=== PATIENT | male | born 1980 | race Caucasian/White ===

== ENCOUNTER 2019-01-22 12:50 | Emergency (ER) | payer SELFPAY ==
[~2019-01-22 12:50] MED LIST: LORazepam 2 MG/ML VIAL ONE
--- NOTE | 2019-01-22 13:23 | EKG ---
Test Date: 2019-01-22 Test Time: 13:10:00 [employer]ometrics Instructor: PORFIRIO MEASUREMENT RESULTS: Intervals: Rate: 102 AK: 184 QRSD: 92 QT: 346 QTc: 450 Winside: P: 66 AK: 184 QRS: 82 T: 59 INTERPRETIVE STATEMENTS: Sinus tachycardia Otherwise normal ECG No previous ECG available for comparison Electronically Signed On 01-22-19 13:22:45 [employer] PROGRAM COORDINATOR by Juan José Cheema
[2019-01-22 13:33] LABS: Absolute Lymphocytes (CBC) 1.7 K/uL (0.7-4.9); Basophils % 1.2 % (0-1.3); Hematocrit 43.9 % (39.6-49.0); MPV 8.9 fL (7.6-11.3); RBC Red Blood Cell Count 5.11 M/uL (4.33-5.43)
[2019-01-22] MEDS ORDERED: LORazepam 2 MG/ML VIAL ONE (13:36)
[2019-01-22 13:42] LABS: Protime INR 0.94
[2019-01-22 13:45] LABS: Barbiturates NEGATIVE (NEGATIVE); Benzodiazepines POSITIVE (NEGATIVE); Cocaine POSITIVE (NEGATIVE); METHAMPHETAM POSITIVE (NEGATIVE); Methadone NEGATIVE (NEGATIVE); Opiates NEGATIVE (NEGATIVE); Phencyclidine NEGATIVE (NEGATIVE); THC Cannibis POSITIVE (NEGATIVE)
[2019-01-22 13:53] LABS: ALT/SGPT 31 U/L (12-78); AST/SGOT 27 U/L (15-37); Albumin 3.9 g/dL (3.4-5.0); Alkaline Phosphatase 74 U/L (45-117); BUN Blood Urea Nitrogen 8 mg/dL (7-18); Bicarbonate 20 mmol/L (21-32); Bilirubin Direct 0.2 mg/dL (0-0.2); Bilirubin Total 0.8 mg/dL (0.2-1.0); Glucose Level 97 mg/dL (74-106); Potassium 3.8 mmol/L (3.5-5.1); Protein, Total 7.3 g/dL (6.4-8.2); Sodium Level 141 mmol/L (136-145)
--- NOTE | 2019-01-22 13:54 | RAD REPORT ---
EXAM DESCRIPTION: CT - Head Brain Wo Cont - 01/22/2019 1:46 pm CLINICAL HISTORY: Seizure COMPARISON: None TECHNIQUE: Computed axial tomography of the head was obtained. IV contrast was not requested. All CT scans are performed using dose optimization technique as appropriate and may include automated exposure control or mA/KV adjustment according to patient size. FINDINGS: An intracranial bleed is not seen . The ventricles are normal in caliber. No extra-axial fluid collection is noted. Fluid within the sinuses/ mastoids is not seen. Moderate chronic calcification left maxillary sinus IMPRESSION: No acute intracranial abnormality is seen. If patient's symptoms persist MRI of the bra in would be recommended.
[2019-01-22] MEDS ORDERED: NA CHLORIDE 0.9% 2,000 ML ONE (14:04)
--- NOTE | 2019-01-22 14:08 | RAD REPORT ---
EXAM DESCRIPTION: CT - Soft Tissue Neck W/Contr - 01/22/2019 1:46 pm CLINICAL HISTORY: Neck pain status post neck trauma. COMPARISON: None. TECHNIQUE: Computed axial tomography of the neck was obtained. 50 cc Isovue 300 was administered in travenously. Coronal and sagittal reconstruction was performed. All CT scans are performed using dose optimization technique as appropriate and may include automated exposure control or mA/KV adjustment according to patient size. FINDINGS: The pharynx, tongue base, larynx and subglottic trachea appear unremarkable The parotid, submandibular and thyroid glands appear unremarkable. No lymphadenopathy is seen The sinuses and mastoids are clear. IMPRESSION: Unremarkable examination.
[2019-01-22] MEDS ORDERED: ONDANSETRON 4 MG/2 ML VIAL ONE (17:22)
[2019-01-22 19:24] LABS: Urine Blood TRACE (NEG); Urine Glucose NEGATIVE (NEG); Urine Protein NEGATIVE (NEG); Urine Specific Gravity 1.025 (1.005-1.030)
--- NOTE | 2019-01-22 23:57 | ER ---
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 confusion/disorientation, difficulty remembering or follow instructions, impaired decision making, decreased Level of Consciousness (LOC), unable to follow instructions, Monitoring: Mental status: confused. patient asleep, Cognition: poor judgement, poor safety awareness, unable to follow commands, Circulation: Within defined parameters (based on Cardiovascular assessment). Skin integrity: Within defined parameters (based on Integumentary assessment) Restraint status: Side rails up x 4 Soft wrist restraint (Right) Soft wrist restraint (Left). 19:00 Violent/Self Destructive Restraint: Observed actions/behavior: wh confusion/disorientation, difficulty remembering or follow instructions, impaired decision making, decreased Level of Consciousness (LOC), unable to follow instructions, Monitoring: Mental status: patient asleep, Cognition: poor judgement, poor safety awareness, unable to follow commands, Circulation: Within defined parameters (based on Cardiovascular assessment). Skin integrity: Within defined parameters (based on Integumentary assessment) Restraint status: Side rails up x 4 Soft wrist restraint (Right) Soft wrist restraint (Left). 19:15 Violent/Self Destructive Restraint: Observed actions/behavior: wh confusion/disorientation, difficulty remembering or follow instructions, impaired decision making, decreased Level of Consciousness (LOC), unable to follow instructions, Monitoring: Mental status: patient asleep, Cognition: poor judgement, poor safety awareness, unable to follow commands, Circulation: Within defined parameters (based on Cardiovascular assessment). Skin integrity: Within defined parameters (based on Integumentary assessment) Restraint status: Side rails up x 4 Soft wrist restraint (Right) Soft wrist restraint (Left). 19:30 Violent/Self Destructive Restraint: Observed actions/behavior: wh confusion/disorientation, difficulty remembering or follow instructions, impaired decision making, decreased Level of Consciousness (LOC), unable to follow instructions, Monitoring: Mental status: confused. Cognition: poor judgement, poor safety awareness, poor attention/concentration, unable to follow commands, Circulation: Within defined parameters (based on Cardiovascular assessment). Skin integrity: Within defined parameters (based on Integumentary assessment) Restraint status: Side rails up x 4 Soft wrist restraint (Right) Soft wrist restraint (Left). 19:45 Violent/Self Destructive Restraint: Observed actions/behavior: wh confusion/disorientation, difficulty remembering or follow instructions, impaired decision making, decreased Level of Consciousness (LOC), unable to follow instructions, Monitoring: Mental status: confused. Cognition: poor judgement, poor safety awareness, poor attention/concentration, unable to follow commands, Circulation: Within defined parameters (based on Cardiovascular assessment). Skin integrity: Within defined parameters (based on Integumentary assessment) Restraint status: Side rails up x 4 Soft wrist restraint (Right) Soft wrist restraint (Left). 20:00 Violent/Self Destructive Restraint: Observed actions/behavior: wh confusion/disorientation, difficulty remembering or follow instructions, impaired decision making, decreased Level of Consciousness (LOC), unable to follow instructions, Monitoring: Mental status: confused. patient asleep, Cognition: poor judgement, poor safety awareness, poor attention/concentration, unable to follow commands, Circulation: Within defined parameters (based on Cardiovascular assessment). Skin integrity: Within defined parameters (based on Integumentary assessment) Restraint status: Side rails up x 4 Soft wrist restraint (Right) Soft wrist restraint (Left). 20:15 Violent/Self Destructive Restraint: Observed actions/behavior: wh confusion/disorientation, difficulty remembering or follow instructions, impaired decision making, decreased Level of Consciousness (LOC), unable to follow instructions, Monitoring: Mental status: confused. patient asleep, Cognition: poor judgement, poor safety awareness, poor attention/concentration, unable to follow commands, Circulation: Within defined parameters (based on Cardiovascular assessment). Skin integrity: Within defined parameters (based on Integumentary assessment) Restraint status: Side rails up x 4 Soft wrist restraint (Right) Soft wrist restraint (Left). 20:30 Violent/Self Destructive Restraint: Observed actions/behavior: wh confusion/disorientation, difficulty remembering or follow instructions, impaired decision making, decreased Level of Consciousness (LOC), unable to follow instructions, Monitoring: Mental status: confused. patient asleep, Cognition: poor judgement, poor safety awareness, poor attention/concentration, unable to follow commands, Circulation: Within defined parameters (based on Cardiovascular assessment). Skin integrity: Within defined parameters (based on Integumentary assessment) Restraint status: Side rails up x 4 Soft wrist restraint (Right) Soft wrist restraint (Left). 20:45 Violent/Self Destructive Restraint: Observed actions/behavior: wh confusion/disorientation, difficulty remembering or follow instructions, impaired decision making, decreased Level of Consciousness (LOC), unable to follow instructions, Monitoring: Mental status: confused. patient asleep, Cognition: poor judgement, poor safety awareness, poor attention/concentration, unable to follow commands, Circulation: Within defined parameters (based on Cardiovascular assessment). Skin integrity: Within defined parameters (based on Integumentary assessment) Restraint status: Side rails up x 4 Soft wrist restraint (Right) Soft wrist restraint (Left). 21:00 Violent/Self Destructive Restraint: Observed actions/behavior: wh confusion/disorientation, difficulty remembering or follow instructions, impaired decision making, decreased Level of Consciousness (LOC), unable to follow instructions, Monitoring: Mental status: patient asleep, Cognition: poor judgement, poor safety awareness, poor attention/concentration, unable to follow commands, Circulation: Within defined parameters (based on Cardiovascular assessment). Skin integrity: Within defined parameters (based on Integumentary assessment) Restraint status: Side rails up x 4 Soft wrist restraint (Right) Soft wrist restraint (Left). 21:15 Violent/Self Destructive Restraint: Observed actions/behavior: wh confusion/disorientation, difficulty remembering or follow instructions, impaired decision making, decreased Level of Consciousness (LOC), unable to follow instructions, Monitoring: Mental status: patient asleep, Cognition: poor judgement, poor safety awareness, poor attention/concentration, unable to follow commands, Circulation: Within defined parameters (based on Cardiovascular assessment). Skin integrity: Within defined parameters (based on Integumentary assessment) Restraint status: Side rails up x 4 Soft wrist restraint (Right) Soft wrist restraint (Left). 21:30 Violent/Self Destructive Restraint: Observed actions/behavior: wh confusion/disorientation, difficulty remembering or follow instructions, impaired decision making, decreased Level of Consciousness (LOC), unable to follow instructions, Monitoring: Mental status: confused. Cognition: poor judgement, poor safety awareness, poor attention/concentration, unable to follow commands, Circulation: Within defined parameters (based on Cardiovascular assessment). Skin integrity: Within defined parameters (based on Integumentary assessment) Restraint status: Side rails up x 4 Soft wrist restraint (Right) Soft wrist restraint (Left). 21:45 Violent/Self Destructive Restraint: Observed actions/behavior: wh confusion/disorientation, difficulty remembering or follow instructions, impaired decision making, decreased Level of Consciousness (LOC), unable to follow instructions, Monitoring: Mental status: patient asleep, Cognition: poor judgement, poor safety awareness, poor attention/concentration, unable to follow commands, Circulation: Within defined parameters (based on Cardiovascular assessment). Skin integrity: Within defined parameters (based on Integumentary assessment) Restraint status: Side rails up x 4 Soft wrist restraint (Right) Soft wrist restraint (Left). 22:00 Violent/Self Destructive Restraint: Observed actions/behavior: wh confusion/disorientation, difficulty remembering or follow instructions, impaired decision making, decreased Level of Consciousness (LOC), unable to follow instructions, Monitoring: Mental status: patient asleep, Cognition: poor judgement, poor safety awareness, poor attention/concentration, unable to follow commands, Circulation: Within defined parameters (based on Cardiovascular assessment). Skin integrity: Within defined parameters (based on Integumentary assessment) Restraint status: Side rails up x 4 Soft wrist restraint (Right) Soft wrist restraint (Left). 22:15 Violent/Self Destructive Restraint: Observed actions/behavior: wh confusion/disorientation, difficulty remembering or follow instructions, impaired decision making, decreased Level of Consciousness (LOC), unable to follow instructions, Monitoring: Mental status: confused. Cognition: poor judgement, poor safety awareness, poor attention/concentration, unable to follow commands, Circulation: Within defined parameters (based on Cardiovascular assessment). Skin integrity: Within defined parameters (based on Integumentary assessment) Restraint status: Side rails up x 4 Soft wrist restraint (Right) Soft wrist restraint (Left). 22:30 Violent/Self Destructive Restraint: Observed actions/behavior: wh confusion/disorientation, difficulty remembering or follow instructions, impaired decision making, decreased Level of Consciousness (LOC), unable to follow instructions, Monitoring: Mental status: confused. Cognition: poor judgement, poor safety awareness, poor attention/concentration, unable to follow commands, Circulation: Within defined parameters (based on Cardiovascular assessment). Skin integrity: Within defined parameters (based on Integumentary assessment) Restraint status: Side rails up x 4 Soft wrist restraint (Right) Soft wrist restraint (Left). 22:45 Violent/Self Destructive Restraint: Observed actions/behavior: wh confusion/disorientation, difficulty remembering or follow instructions, impaired decision making, decreased Level of Consciousness (LOC), unable to follow instructions, Monitoring: Mental status: confused. Cognition: poor judgement, poor safety awareness, poor attention/concentration, unable to follow commands, Circulation: Within defined parameters (based on Cardiovascular assessment). Skin integrity: Within defined parameters (based on Integumentary assessment) Restraint status: Side rails up x 4 Soft wrist restraint (Right) Soft wrist restraint (Left). 23:00 Violent/Self Destructive Restraint: Observed actions/behavior: wh confusion/disorientation, difficulty remembering or follow instructions, impaired decision making, decreased Level of Consciousness (LOC), unable to follow instructions, Monitoring: Mental status: patient asleep, Cognition: poor judgement, poor safety awareness, poor attention/concentration, unable to follow commands, Circulation: Within defined parameters (based on Cardiovascular assessment). Skin integrity: Within defined parameters (based on Integumentary assessment) Restraint status: Side rails up x 4 Soft wrist restraint (Right) Soft wrist restraint (Left). 23:15 Violent/Self Destructive Restraint: Observed actions/behavior: wh confusion/disorientation, difficulty remembering or follow instructions, impaired decision making, decreased Level of Consciousness (LOC), unable to follow instructions, Monitoring: Mental status: patient asleep, Cognition: poor judgement, poor safety awareness, poor attention/concentration, unable to follow commands, Circulation: Within defined parameters (based on Cardiovascular assessment). Skin integrity: Within defined parameters (based on Integumentary assessment) Restraint status: Side rails up x 4 Soft wrist restraint (Right) Soft wrist restraint (Left). 23:30 Violent/Self Destructive Restraint: Observed actions/behavior: wh confusion/disorientation, difficulty remembering or follow instructions, impaired decision making, Monitoring: Mental status: confused. Cognition: poor judgement, poor safety awareness, poor attention/concentration, unable to follow commands, Circulation: Within defined parameters (based on Cardiovascular assessment). Skin integrity: Within defined parameters (based on Integumentary assessment) Restraint status: Side rails up x 4 Soft wrist restraint (Right) Soft wrist restraint (Left). 23:45 Violent/Self Destructive Restraint: Observed actions/behavior: wh confusion/disorientation, difficulty remembering or follow instructions, impaired decision making, unable to follow instructions, Monitoring: Mental status: confused. Cognition: poor judgement, poor safety awareness, poor attention/concentration, unable to follow commands, Circulation: Within defined parameters (based on Cardiovascular assessment). Skin integrity: Within defined parameters (based on Integumentary assessment) Restraint status: Side rails up x 4 Soft wrist restraint (Right) Soft wrist restraint (Left). 01/23 00:00 Violent/Self Destructive Restraint: Monitoring: Cognition: appropriate judgement, wh appropriate safety awareness, appropriate for developmental age, appropriate attention/concentration, follow commands, Restraint discontinuation: Discontinued at January 23, 2019 at 00:00 Effective alternative interventions: reoriented to location, trained sitter in room, verbal de-escalation performed. Administered Medications: 01/22 13:05 Drug: Ativan 2 mg Route: IVP; Site: right forearm; iw 17:24 Follow up: Response: No adverse reaction tw2 13:40 Drug: Ativan 2 mg Route: IVP; Site: right antecubital; ph 17:24 Follow up: Response: No adverse reaction tw2 14:06 Drug: NS 0.9% 1000 ml Route: IV; Rate: 1000 ml; Site: right wrist; tw2 17:24 Follow up: Response: No adverse reaction; IV Status: Completed infusion; IV Intake: tw2 1000ml 14:07 Drug: NS 0.9% 1000 ml Route: IV; Rate: 1000 ml; Site: right wrist; tw2 17:23 Follow up: Response: No adverse reaction; IV Status: Completed infusion; IV Intake: tw2 1000ml 17:23 Drug: Zofran 4 mg Route: IVP; Site: right wrist; tw2 17:34 Follow up: Response: No adverse reaction; Nausea is decreased ph Intake: 17:23 IV: 1000ml; Total: 1000ml. tw2 17:24 IV: 1000ml; Total: 2000ml. tw2 01/23 00:30 PO: 120ml; Total: 2120ml. wh Output: 00:30 Urine: 500ml (Voided); Total: 500ml. wh Outcome: 01/22 23:56 Discharge ordered by MD. little 01/23 00:29 Condition: stable wh Discharge instructions given to patient, police, Instructed on discharge instructions, follow up and referral plans. POC Demonstrated understanding of instructions, follow-up care, POC Patient's length of stay in the Emergency Department was greater than 2 hours. Patient's length of stay extended due to 00:30 Discharged to Law Enforcement 00:31 Patient left the ED. Signatures: Dispatcher [employer] Sunshine Li, RN RN Kailash Camejo PA PA [id number] Dora Lovell, automatic presser EKG Tat1 JenniferdlGordo, MACHINING DEPARTMENT SUPERVISOR-C MACHINING DEPARTMENT SUPERVISOR-Cla1 Rosalinda Florian RN RN Sheyla Helton RN RN tw2 ViviAkhil baroen Corrections: (The following items were deleted from the chart) 01/22 13:15 13:12 Temp 97.9F Temporal; [facility] 15:55 13:23 Reassessment: PD at bedside, pt combative and post-ictal after IVP meds, not ph following verbal commands, placed in 4 point soft restraints ph 17:15 17:15 Reassessment: Patient appears in no apparent distress at this time. Patient tw2 and/or family updated on plan of care and expected duration. Pain level reassessed. provider JUDITH Camejo at bedside at this time trying to arouse pt to be discharged at this time. tw2 01/23 07:04 00:00 Violent/Self Destructive Restraint: Observed actions/behavior: confusion/disorientation, difficulty remembering or follow instructions, impaired decision making, Monitoring: Mental status: confused. Cognition: poor judgement, poor safety awareness, poor attention/concentration, unable to follow commands, Circulation: Within defined parameters (based on Cardiovascular assessment). Skin integrity: Within defined parameters (based on Integumentary assessment) Restraint status: Side rails up x 4 Soft wrist restraint (Right) Soft wrist restraint (Left)
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
[2019-01-23 08:40] VITALS: TEMP 97.9
[2019-01-23 08:51] VITALS: O2SAT 100
[2019-01-23 08:56] VITALS: BP 148/102
== END 2019-01-23 00:31 | disposition home or self-care (01) ==
LOC: ER 12:50
DX: F19.129 Other psychoactive substance abuse with intoxication, unspecified (principal); Y04.8XXA Assault by other bodily force, initial encounter; Y93.89 Activity, other specified; Y92.149 Unspecified place in prison as the place of occurrence of the external cause
CPT/HCPCS: 36415; 70450; 70491; 80048; 80076; 80307; 80320; 80329; 81003; 85025; 85610; 85730; 93005; 96361; 96374; 96375; 99285; J2405; J7030; Q9967